=== PATIENT | male | born 1990 | race Caucasian/White ===

== ENCOUNTER 2018-02-02 11:15 | Emergency (ER) | payer SELFPAY ==
[~2018-02-02] VITALS: Ht 193 cm; Wt 83.0 kg
[~2018-02-02 11:15] MED LIST: TAB-TAB PO
[2018-02-02 11:19] VITALS: BP 141/67; PULSE 61; RESP 16; TEMP 98; O2SAT 99
[2018-02-02] MEDS ORDERED: BACT800T5 PO (11:27)
--- NOTE | 2018-02-02 11:32 | PD ---
HPI Chief Complaint: Skin Problem Time Seen by Provider: 11:27 Travel History International Travel<30 days: No Contact w/Intl Traveler<30days: No Traveled to known affect area: No History of Present Illness HPI 27-year-old male that presents to the ED for evaluation of superficial laceration to the left eyelid as well as swelling. Per patient this happened yesterday. Per patient he was working when unloading a new machine he got scraped on the eyebrow. He denies any significant injuries. Per patient he was just scraped and was hit. He was concerned because he started having twitching and swelling on the left eyelid. He states that he is up-to-date with his tetanus. Per patient the discomfort is minimal and is 4 out of 10. Per patient his boss wanted him to get checked. He denies any other medical issues. Is concerned about infection. No blurry vision or double vision. Eye itself is intact. PFSH Past Medical History Asthma: Yes Immunizations Current: Yes Social History Alcohol Use: No Tobacco Use: No Substance Use: No Allergies-Medications (Allergen,Severity, Reaction): Coded Allergies: No Known Allergies (Verified Adverse Reaction, Unknown, 02/02/18) Reported Meds & Prescriptions Reported Meds & Active Scripts Active Bactrim DS (Sulfamethoxazole-Trimethoprim) 800-160 Mg Tab 1 Tab PO BID 10 Days Reported Multivitamin (Multivitamins) 1 Tab Tab 1 Tab PO DAILY Review of Systems Except as stated in HPI: all other systems reviewed are Neg Physical Exam Narrative GENERAL: SKIN: Warm and dry. HEAD: Atraumatic. Normocephalic. EYES: Pupils equal and round 4 mm reactive to light and accommodation. No scleral icterus. No injection or drainage. EOM intact bilaterally. Peripheral vision intact bilaterally. Patient does have soft tissue swelling noted on the eyebrow. Some of the swelling appears to be also on the left cheek but there is no tenderness to palpation in this areas. No lymphadenopathy noted. No signs of erythema. ENT: No nasal bleeding or discharge. Mucous membranes pink and moist. NECK: Trachea midline. No JVD. CARDIOVASCULAR: Regular rate and rhythm. RESPIRATORY: No accessory muscle use. Clear to auscultation. Breath sounds equal bilaterally. GASTROINTESTINAL: Abdomen soft, non-tender, nondistended. Hepatic and splenic margins not palpable. MUSCULOSKELETAL: Extremities without clubbing, cyanosis, or edema. No obvious deformities. NEUROLOGICAL: Awake and alert. No obvious cranial nerve deficits. Motor grossly within normal limits. Five out of 5 muscle strength in the arms and legs. Normal speech. PSYCHIATRIC: Appropriate mood and affect; insight and judgment normal. Data Data Last Documented VS Vital Signs Date Time Temp Pulse Resp B/P (MAP) Pulse Ox O2 Delivery O2 Flow Rate FiO2 02/02/18 11:19 98.0 61 16 141/67 (91) 99 Orders Orders Ed Discharge Order (02/02/18 11:28) MDM Medical Decision Making Medical Screen Exam Complete: Yes Emergency Medical Condition: Yes Medical Record Reviewed: Yes Differential Diagnosis Laceration versus abrasion versus head injury Narrative Course 27-year-old male that presents to the ED for evaluation of injury to his right upper eye brow. Patient was properly examined and was found to have signs and symptoms consistent appears to be superficial laceration with swelling. No sign of erythema which could be infectious. Patient has no bony tenderness on palpation. Eye itself appears to be intact. Likely contusion with superficial laceration. At this time I recommend trial of Bactrim to cover for bacterial infection as well as already more than 12 hours old. Ice and Motrin and Tylenol for pain. Swelling should come down the next couple of days. follow up with PCP. See ED worsening symptoms. Diagnosis Primary Impression: Laceration of head Qualified Codes: S01.112A - Laceration without foreign body of left eyelid and periocular area, initial encounter Patient Instructions: General Instructions Additional Instructions: Take medication as prescribed. Tylenol or Motrin for pain. Follow with PCP. Ice to the area. See ED if worsening symptoms. Med/Other Pt SpecificInfo: Prescription(s) given, Wound Care Scripts Sulfamethoxazole-Trimethoprim (Bactrim DS) 800-160 Mg Tab 1 TAB PO BID for Infection for 10 Days, #20 TAB 0 Refills Prov: Jorge Palacios MD 02/02/18 Disposition: 01 DISCHARGE HOME Condition: Stable Garrett Sykes Feb 02, 2018 11:32
== END 2018-02-02 11:46 | disposition home or self-care (01) ==
LOC: PHEFT 11:15
DX: S01.112A Laceration without foreign body of left eyelid and periocular area, initial encounter (principal); R22.0 Localized swelling, mass and lump, head; Z87.09 Personal history of other diseases of the respiratory system; W31.9XXA Contact with unspecified machinery, initial encounter; Y93.89 Activity, other specified; Y99.0 Civilian activity done for income or pay
CPT/HCPCS: 99283